=== PATIENT | male | born 1940 | race Caucasian/White ===

== ENCOUNTER 2020-11-07 01:32 | Emergency (ER) | payer OTHER ==
[~2020-11-07 01:32] MED LIST: NORCO 5-325 TA1 EACH PO
[2020-11-07 02:53] LABS: HEMOGLOBIN 14.1 gm/dl (14.0-17.5); RED BLOOD COUNT 4.24 M/UL (4.20-5.50); WHITE BLOOD COUNT 7.6 K/UL (4.5-11.0)
[2020-11-07] MEDS ORDERED: OMNICEF 300 MG300 MG PO (11:03)
[2020-11-07] MEDS ORDERED: PREDNISONE20 MG PO (11:03)
== END 2020-11-07 12:10 | disposition home or self-care (01) ==
LOC: ER1 01:32
PROVIDERS: Emergency Medicine
DX: N39.0 Urinary tract infection, site not specified (principal); T78.40XA Allergy, unspecified, initial encounter; Z20.822 Contact with and (suspected) exposure to COVID-19
CPT/HCPCS: 36415; 71045; 80053; 81001; 82550; 83605; 83690; 84484; 85025; 87040; 87077; 87086; 87186; 93005; 96374; 96375; 99285; J0696; J1200; J2405; J2930; J7030; Q9967; U0003

== ENCOUNTER → 2021-03-10 | Outpatient (CLI) | payer OTHER, SELFPAY ==
[~2021-03-10] MED LIST changes: +OMNICEF 300 MG300 MG PO; +PREDNISONE20 MG PO
== END ==
LOC: ECHO 10:31
DX: R06.02 Shortness of breath (principal)
CPT/HCPCS: ECHO; 93306